=== PATIENT | male | born 1995 | race Caucasian/White ===

== ENCOUNTER 2016-06-17 01:40 | Emergency (ER) | payer BC ==
[~2016-06-17] VITALS: Ht 172.7 cm; Wt 75.0 kg
[2016-06-17 01:45] VITALS: TEMP 36.6; Ht 172.7 cm; Wt 75.0 kg
[2016-06-17] MEDS ORDERED: LIDOCAINE/EPINEPH/TETRACAINE 1 EA SYR EXT STA (01:55)
[2016-06-17] MEDS ORDERED: AMOXICIL/CLAVU 875MG HOME PACK PO ONE (02:00)
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
[2016-06-17] MEDS ORDERED: AMOX875T PO (03:12)
[2016-06-17 03:26] VITALS: BP 151/89; PULSE 113; O2SAT 96
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
== END 2016-06-17 03:29 | disposition home or self-care (01) ==
LOC: C.EDB 01:42
DX: S01.511A Laceration without foreign body of lip, initial encounter (principal); S09.90XA Unspecified injury of head, initial encounter; Y09 Assault by unspecified means; Y92.89 Other specified places as the place of occurrence of the external cause; J32.9 Chronic sinusitis, unspecified